=== PATIENT | female | born 1975 | race Two or more races ===

== ENCOUNTER 2023-06-04 06:18 | Emergency (ER) | payer MEDICAID, OTHER ==
[~2023-06-04] VITALS: Ht 154.9 cm; Wt 98.6 kg
[2023-06-04 07:44] VITALS: BP 136/85; PULSE 74; RESP 16; TEMP 98.7; O2SAT 96
[2023-06-04] MEDS ORDERED: KETOROLAC TROMETH 60MG/2ML VIAL IM ONE (08:00)
[2023-06-04] MEDS ORDERED: METH-1182 PO (08:41)
[2023-06-04] MEDS ORDERED: IBUP-1456 PO (08:41)
== END 2023-06-04 08:50 | disposition home or self-care (01) ==
LOC: ER 06:18
DX: S16.1XXA Strain of muscle, fascia and tendon at neck level, initial encounter (principal); X50.1XXA Overexertion from prolonged static or awkward postures, initial encounter; Y93.89 Activity, other specified; Y92.488 Other paved roadways as the place of occurrence of the external cause; Y99.8 Other external cause status
CPT/HCPCS: 72040; 96372; 99283; J1885